=== PATIENT | male | born 1975 | race Caucasian/White ===

== ENCOUNTER 2020-07-26 10:43 | Inpatient (IN) | payer MEDICAID, SELFPAY ==
[~2020-07-26] VITALS: Ht 167.6 cm; Wt 85.7 kg
[~2020-07-26 10:43] MED LIST: GLU500 PO
[2020-07-26 10:50] VITALS: BP_SYST 122
[2020-07-26] MEDS ORDERED: NACL 0.9% 1,000 ML IV ONE ×2 (11:45→14:30)
[2020-07-26 12:55] LABS: BASOPHILS % (AUTO) 0.1 % (0.0-2.0); HEMATOCRIT 30.2 % (36-54); HEMOGLOBIN 10.2 g/dL (14.0-18.0); LYMPHOCYTES # (AUTO) 0.6 K/uL (1.0-5.5); LYMPHOCYTES % (AUTO) 5.8 % (20.5-51.5); MEAN CORPUSCULAR HEMOGLOBIN 29 pg (27-31); MEAN CORPUSCULAR HGB CONC 34 % (32-36); MEAN CORPUSCULAR VOLUME 85 fL (79.0-98.0); MONOCYTES # (AUTO) 0.4 K/uL (0.0-1.0); MONOCYTES % (AUTO) 3.6 % (1.7-9.3); NEUTROPHILS # (AUTO) 8.9 K/uL (1.8-7.7); NEUTROPHILS % (AUTO) 90.5 % (40.0-70.0); PLATELET COUNT (AUTO) 223 K/uL (130-430); RED BLOOD CELL COUNT(AUTO) 3.58 MIL/uL (4.2-6.2); RED CELL DISTRIBUTION WIDTH 13.7 % (9.0-15.0); WHITE BLOOD COUNT (AUTO) 9.9 K/uL (4.8-10.8)
[2020-07-26 13:09] LABS: CALCIUM 8.1 mg/dL (8.4-11.0); CREATININE 2.84 mg/dL (0.55-1.30); POTASSIUM 4.4 mmol/L (3.5-5.1)
[2020-07-26 13:23] LABS: ALBUMIN 3.2 g/dL (3.4-4.8); TOTAL BILIRUBIN 0.4 mg/dL (0.0-1.0)
[2020-07-26] MEDS ORDERED: KCL 20 mEq in NS 1000 mL 1,000 ML IV ONE (17:00)
[2020-07-26] MEDS ORDERED: LOP600 PO (17:20)
[2020-07-26] MEDS ORDERED: METF500S7 PO (17:20)
[2020-07-26] MEDS ORDERED: LISI10TA5 PO (17:20)
[2020-07-26] MEDS ORDERED: GLIP5TAB13 PO (17:20)
[2020-07-26] MEDS ORDERED: KCL 20 mEq in 0.45% NS 1000 mL 1,000 ML IV ONE (17:27)
[2020-07-26] MEDS ORDERED: KCL 20 mEq in NS 1000 mL 1,000 ML IV SCH (18:30)
[2020-07-26] MEDS: LACTOBACILLUS RHAMNOSUS GG 1 CAP CAPSULE PO SCH (21:00)
[2020-07-26] MEDS: VANCOMYCIN HCL ORAL SOLUTION 250 MG/5 ML, 80 ML PO SCH (21:00)
[2020-07-26] MEDS ORDERED: SACCHAROMYCES BOULARDII 250 MG CAPSULE (FLORASTOR) PO SCH (21:00)
[2020-07-26] MEDS: ENOXAPARIN SODIUM 30 MG/0.3 ML SYRINGE SUBCUT SCH (21:27)
[2020-07-26] MEDS ORDERED: ONDANSETRON HCL 4 MG/2 ML VIAL IVP PRN (21:45)
[2020-07-26] MEDS: 0.45% NACL 1,000 ML IV SCH (22:03)
[2020-07-26] MEDS: metroNIDAZOLE 500 mg/NS 100 ML IV SCH (22:03)
[2020-07-26] MEDS: ASCORBIC ACID 500 MG TABLET PO SCH (23:00)
[2020-07-26] MEDS: ACETAMINOPHEN 325 MG TABLET PO PRN (23:00)
[2020-07-27] MEDS: metroNIDAZOLE 500 mg/NS 100 ML IV SCH (05:50)
[2020-07-27 05:58] LABS: BASOPHILS % (AUTO) 0.3 % (0.0-2.0); EOSINOPHILS % (AUTO) 0.1 % (0.0-4.0); HEMATOCRIT 26.1 % (36-54); HEMOGLOBIN 8.8 g/dL (14.0-18.0); LYMPHOCYTES # (AUTO) 1.5 K/uL (1.0-5.5); LYMPHOCYTES % (AUTO) 17.5 % (20.5-51.5); MEAN CORPUSCULAR HEMOGLOBIN 29 pg (27-31); MEAN CORPUSCULAR HGB CONC 34 % (32-36); MEAN CORPUSCULAR VOLUME 85 fL (79.0-98.0); MONOCYTES # (AUTO) 0.4 K/uL (0.0-1.0); NEUTROPHILS # (AUTO) 6.6 K/uL (1.8-7.7); NEUTROPHILS % (AUTO) 77.1 % (40.0-70.0); PLATELET COUNT (AUTO) 205 K/uL (130-430); RED BLOOD CELL COUNT(AUTO) 3.07 MIL/uL (4.2-6.2); RED CELL DISTRIBUTION WIDTH 13.4 % (9.0-15.0); WHITE BLOOD COUNT (AUTO) 8.5 K/uL (4.8-10.8)
[2020-07-27 05:59] LABS: CALCIUM 7.3 mg/dL (8.4-11.0); CREATININE 2.12 mg/dL (0.55-1.30); PHOSPHORUS 2.9 mg/dL (2.7-4.5)
[2020-07-27 07:18] LABS: C-REACTIVE PROTEIN QUANT 22.3 mg/dL (0-0.5)
[2020-07-27] MEDS: LACTOBACILLUS RHAMNOSUS GG 1 CAP CAPSULE PO SCH ×2 (12:02→21:00)
[2020-07-27] MEDS: CHOLECALCIFEROL (VITAMIN D3) 2,000 UNIT TABLET PO SCH (12:05)
[2020-07-27] MEDS: VANCOMYCIN HCL ORAL SOLUTION 250 MG/5 ML, 80 ML PO SCH ×4 (12:05→20:51)
[2020-07-27] MEDS: ASCORBIC ACID 500 MG TABLET PO SCH ×2 (12:05→20:50)
[2020-07-27] MEDS: INSULIN REGULAR, HUMAN 100 UNITS/ML, 10 ML VIAL (humuLIN R) SUBCUT PRN ×3 (12:10→21:33)
[2020-07-27] MEDS: 0.45% NACL 1,000 ML IV SCH (12:40)
[2020-07-27] MEDS ORDERED: IVERMECTIN 3 MG TABLET PO ONE (14:00)
[2020-07-27 14:17] VITALS: BP_SYST 141
[2020-07-27] MEDS: AZITHROMYCIN 500 MG in NS 250 ML IV SCH (15:33)
[2020-07-27 16:16] VITALS: BP_SYST 123
[2020-07-27 20:21] VITALS: BP_SYST 149
[2020-07-27] MEDS: ACETAMINOPHEN 325 MG TABLET PO PRN (20:51)
[2020-07-27] MEDS: ENOXAPARIN SODIUM 30 MG/0.3 ML SYRINGE SUBCUT SCH (20:52)
[2020-07-28 00:17] VITALS: BP_SYST 133
[2020-07-28] MEDS: 0.45% NACL 1,000 ML IV SCH ×2 (06:12→22:00)
[2020-07-28] MEDS: CHOLECALCIFEROL (VITAMIN D3) 2,000 UNIT TABLET PO SCH (08:54)
[2020-07-28] MEDS: VANCOMYCIN HCL ORAL SOLUTION 250 MG/5 ML, 80 ML PO SCH ×4 (08:54→21:59)
[2020-07-28] MEDS: ASCORBIC ACID 500 MG TABLET PO SCH ×2 (08:54→21:59)
[2020-07-28] MEDS: LACTOBACILLUS RHAMNOSUS GG 1 CAP CAPSULE PO SCH ×2 (08:54→21:59)
[2020-07-28 09:11] LABS: BASOPHILS % (AUTO) 0.4 % (0.0-2.0); EOSINOPHILS % (AUTO) 0.3 % (0.0-4.0); HEMATOCRIT 26.1 % (36-54); HEMOGLOBIN 9.1 g/dL (14.0-18.0); LYMPHOCYTES # (AUTO) 0.9 K/uL (1.0-5.5); LYMPHOCYTES % (AUTO) 9.9 % (20.5-51.5); MEAN CORPUSCULAR HEMOGLOBIN 29 pg (27-31); MEAN CORPUSCULAR HGB CONC 35 % (32-36); MONOCYTES # (AUTO) 0.6 K/uL (0.0-1.0); MONOCYTES % (AUTO) 6.5 % (1.7-9.3); NEUTROPHILS # (AUTO) 7.2 K/uL (1.8-7.7); NEUTROPHILS % (AUTO) 82.9 % (40.0-70.0); PLATELET COUNT (AUTO) 241 K/uL (130-430); RED BLOOD CELL COUNT(AUTO) 3.13 MIL/uL (4.2-6.2); RED CELL DISTRIBUTION WIDTH 13.5 % (9.0-15.0); WHITE BLOOD COUNT (AUTO) 8.6 K/uL (4.8-10.8)
[2020-07-28 09:22] LABS: MEAN CORPUSCULAR VOLUME 83 fL (79.0-98.0)
[2020-07-28 09:38] VITALS: BP_SYST 136
[2020-07-28 10:22] LABS: CALCIUM 8.1 mg/dL (8.4-11.0); CREATININE 1.86 mg/dL (0.55-1.30); POTASSIUM 3.8 mmol/L (3.5-5.1)
[2020-07-28] MEDS: INSULIN REGULAR, HUMAN 100 UNITS/ML, 10 ML VIAL (humuLIN R) SUBCUT PRN (12:14)
[2020-07-28] MEDS: AZITHROMYCIN 500 MG in NS 250 ML IV SCH (16:00)
[2020-07-28 18:25] VITALS: BP_SYST 128
[2020-07-28 20:00] VITALS: BP_SYST 127
[2020-07-28] MEDS: IVERMECTIN 3 MG TABLET PO ONE ×2 (20:00→21:58)
[2020-07-28] MEDS: ENOXAPARIN SODIUM 30 MG/0.3 ML SYRINGE SUBCUT SCH (21:00)
[2020-07-29 08:04] LABS: BASOPHILS % (AUTO) 0.2 % (0.0-2.0); EOSINOPHILS # (AUTO) 0.1 K/uL (0.0-0.4); EOSINOPHILS % (AUTO) 0.6 % (0.0-4.0); HEMATOCRIT 25.6 % (36-54); HEMOGLOBIN 8.8 g/dL (14.0-18.0); LYMPHOCYTES # (AUTO) 0.9 K/uL (1.0-5.5); LYMPHOCYTES % (AUTO) 10.6 % (20.5-51.5); MEAN CORPUSCULAR HEMOGLOBIN 29 pg (27-31); MEAN CORPUSCULAR HGB CONC 34 % (32-36); MEAN CORPUSCULAR VOLUME 84 fL (79.0-98.0); MONOCYTES # (AUTO) 0.9 K/uL (0.0-1.0); MONOCYTES % (AUTO) 9.6 % (1.7-9.3); PLATELET COUNT (AUTO) 258 K/uL (130-430); RED BLOOD CELL COUNT(AUTO) 3.06 MIL/uL (4.2-6.2); RED CELL DISTRIBUTION WIDTH 13.7 % (9.0-15.0); WHITE BLOOD COUNT (AUTO) 8.9 K/uL (4.8-10.8)
[2020-07-29 08:12] LABS: ALBUMIN 2.3 g/dL (3.4-4.8); CALCIUM 8.1 mg/dL (8.4-11.0); CREATININE 1.7 mg/dL (0.55-1.30); POTASSIUM 3.5 mmol/L (3.5-5.1); TOTAL BILIRUBIN 0.4 mg/dL (0.0-1.0)
[2020-07-29 08:45] VITALS: BP_SYST 141
[2020-07-29] MEDS: LACTOBACILLUS RHAMNOSUS GG 1 CAP CAPSULE PO SCH ×2 (09:00→21:00)
[2020-07-29 09:03] LABS: C-REACTIVE PROTEIN QUANT 37.2 mg/dL (0-0.5)
[2020-07-29] MEDS: CHOLECALCIFEROL (VITAMIN D3) 2,000 UNIT TABLET PO SCH (09:57)
[2020-07-29] MEDS: ASCORBIC ACID 500 MG TABLET PO SCH ×2 (09:57→21:00)
[2020-07-29] MEDS ORDERED: ENOXAPARIN SODIUM 30 MG/0.3 ML SYRINGE ONE (10:01)
[2020-07-29] MEDS: VANCOMYCIN HCL ORAL SOLUTION 250 MG/5 ML, 80 ML PO SCH ×4 (10:04→21:00)
[2020-07-29] MEDS: ENOXAPARIN SODIUM 30 MG/0.3 ML SYRINGE SUBCUT SCH ×2 (10:05→21:00)
[2020-07-29 11:16] VITALS: BP_SYST 144
[2020-07-29] MEDS: 0.45% NACL 1,000 ML IV SCH (12:13)
[2020-07-29 15:36] VITALS: BP_SYST 152
[2020-07-29] MEDS: AZITHROMYCIN 500 MG in NS 250 ML IV SCH (17:04)
[2020-07-29 20:00] VITALS: BP_SYST 130
[2020-07-29] MEDS ORDERED: MELATONIN 3 MG TABLET PO PRN (21:30)
[2020-07-30 04:00] VITALS: BP_SYST 135
[2020-07-30] MEDS: 0.45% NACL 1,000 ML IV SCH (06:52)
[2020-07-30 08:00] VITALS: BP_SYST 160
[2020-07-30 08:15] LABS: BASOPHILS % (AUTO) 0.4 % (0.0-2.0); EOSINOPHILS # (AUTO) 0.1 K/uL (0.0-0.4); EOSINOPHILS % (AUTO) 1.1 % (0.0-4.0); HEMATOCRIT 26.3 % (36-54); LYMPHOCYTES # (AUTO) 1.1 K/uL (1.0-5.5); LYMPHOCYTES % (AUTO) 17.2 % (20.5-51.5); MEAN CORPUSCULAR HEMOGLOBIN 29 pg (27-31); MEAN CORPUSCULAR HGB CONC 34 % (32-36); MEAN CORPUSCULAR VOLUME 84 fL (79.0-98.0); MONOCYTES # (AUTO) 0.9 K/uL (0.0-1.0); MONOCYTES % (AUTO) 13.9 % (1.7-9.3); NEUTROPHILS # (AUTO) 4.4 K/uL (1.8-7.7); NEUTROPHILS % (AUTO) 67.4 % (40.0-70.0); PLATELET COUNT (AUTO) 310 K/uL (130-430); RED BLOOD CELL COUNT(AUTO) 3.15 MIL/uL (4.2-6.2); RED CELL DISTRIBUTION WIDTH 13.5 % (9.0-15.0); WHITE BLOOD COUNT (AUTO) 6.6 K/uL (4.8-10.8)
[2020-07-30 08:43] LABS: ALBUMIN 2.2 g/dL (3.4-4.8); CALCIUM 7.9 mg/dL (8.4-11.0); CREATININE 1.45 mg/dL (0.55-1.30); POTASSIUM 3.5 mmol/L (3.5-5.1); TOTAL BILIRUBIN 0.4 mg/dL (0.0-1.0)
[2020-07-30] MEDS: LACTOBACILLUS RHAMNOSUS GG 1 CAP CAPSULE PO SCH ×2 (09:00→21:00)
[2020-07-30] MEDS ORDERED: ENOXAPARIN SODIUM 30 MG/0.3 ML SYRINGE ONE ×2 (09:55→21:42)
[2020-07-30] MEDS: ASCORBIC ACID 500 MG TABLET PO SCH ×2 (09:55→21:00)
[2020-07-30] MEDS: CHOLECALCIFEROL (VITAMIN D3) 2,000 UNIT TABLET PO SCH (09:55)
[2020-07-30] MEDS: VANCOMYCIN HCL ORAL SOLUTION 250 MG/5 ML, 80 ML PO SCH ×4 (09:55→21:00)
[2020-07-30] MEDS: ENOXAPARIN SODIUM 30 MG/0.3 ML SYRINGE SUBCUT SCH ×2 (09:57→21:00)
[2020-07-30] MEDS: AZITHROMYCIN 500 MG in D5W 250 ML IV SCH (11:41)
[2020-07-30 12:05] VITALS: BP_SYST 160
[2020-07-30 16:07] VITALS: BP_SYST 149
[2020-07-30 20:00] VITALS: BP_SYST 150
[2020-07-31] MEDS: 0.45% NACL 1,000 ML IV SCH
[2020-07-31 08:00] VITALS: BP_SYST 149
[2020-07-31 08:30] LABS: BASOPHILS % (AUTO) 0.6 % (0.0-2.0); EOSINOPHILS # (AUTO) 0.1 K/uL (0.0-0.4); EOSINOPHILS % (AUTO) 1.2 % (0.0-4.0); HEMATOCRIT 26.9 % (36-54); HEMOGLOBIN 9.3 g/dL (14.0-18.0); LYMPHOCYTES # (AUTO) 1.1 K/uL (1.0-5.5); LYMPHOCYTES % (AUTO) 19.7 % (20.5-51.5); MEAN CORPUSCULAR HEMOGLOBIN 29 pg (27-31); MEAN CORPUSCULAR HGB CONC 35 % (32-36); MEAN CORPUSCULAR VOLUME 84 fL (79.0-98.0); MONOCYTES # (AUTO) 0.7 K/uL (0.0-1.0); MONOCYTES % (AUTO) 11.7 % (1.7-9.3); NEUTROPHILS # (AUTO) 3.8 K/uL (1.8-7.7); NEUTROPHILS % (AUTO) 66.8 % (40.0-70.0); PLATELET COUNT (AUTO) 335 K/uL (130-430); RED BLOOD CELL COUNT(AUTO) 3.21 MIL/uL (4.2-6.2); RED CELL DISTRIBUTION WIDTH 13.3 % (9.0-15.0); WHITE BLOOD COUNT (AUTO) 5.7 K/uL (4.8-10.8)
[2020-07-31 08:38] LABS: ALBUMIN 2.2 g/dL (3.4-4.8); CALCIUM 8.1 mg/dL (8.4-11.0); CREATININE 1.42 mg/dL (0.55-1.30); POTASSIUM 3.4 mmol/L (3.5-5.1); TOTAL BILIRUBIN 0.3 mg/dL (0.0-1.0)
[2020-07-31] MEDS: VANCOMYCIN HCL ORAL SOLUTION 250 MG/5 ML, 80 ML PO SCH ×2 (09:00→13:05)
[2020-07-31] MEDS: CHOLECALCIFEROL (VITAMIN D3) 2,000 UNIT TABLET PO SCH (09:00)
[2020-07-31] MEDS: LACTOBACILLUS RHAMNOSUS GG 1 CAP CAPSULE PO SCH (09:00)
[2020-07-31] MEDS: AZITHROMYCIN 500 MG in D5W 250 ML IV SCH (10:47)
[2020-07-31 11:10] VITALS: BP_SYST 149
[2020-07-31] MEDS: ENOXAPARIN SODIUM 30 MG/0.3 ML SYRINGE SUBCUT SCH (12:30)
[2020-07-31] MEDS ORDERED: ENOXAPARIN SODIUM 60 MG/0.6 ML SYRINGE ONE (13:01)
[2020-07-31] MEDS: ASCORBIC ACID 500 MG TABLET PO SCH (13:05)
[2020-07-31] MEDS: INSULIN REGULAR, HUMAN 100 UNITS/ML, 10 ML VIAL (humuLIN R) SUBCUT PRN (13:41)
[2020-07-31 16:39] VITALS: BP_SYST 149
== END 2020-07-31 18:20 | disposition home or self-care (01) | DRG 137 ==
LOC: SED 10:43 → SMU 16:48
PROVIDERS: ADMIT Family Medicine; ATTEND Family Medicine
PROC: XW13325 Transfusion of Convalescent Plasma (Nonautologous) into Peripheral Vein, Percutaneous Approach, New Technology Group 5 (ICD-10-PCS; principal; 2020-07-28)
DX: U07.1 COVID-19 (principal); I12.9 Hypertensive chronic kidney disease with stage 1 through stage 4 chronic kidney disease, or unspecified chronic kidney disease; N18.9 Chronic kidney disease, unspecified; E11.22 Type 2 diabetes mellitus with diabetic chronic kidney disease; K52.9 Noninfective gastroenteritis and colitis, unspecified; D64.9 Anemia, unspecified; E87.1 Hypo-osmolality and hyponatremia; Z79.899 Other long term (current) drug therapy; Z90.49 Acquired absence of other specified parts of digestive tract; N17.0 Acute kidney failure with tubular necrosis; E44.0 Moderate protein-calorie malnutrition; R64 Cachexia
CPT/HCPCS: 36415; 71045; 80048; 80053; 82728; 82962; 83605; 83690-TC; 83735-TC; 84100-TC; 85025; 85379; 86140; 86886; 86900; 86901; 87040-TC; 87230-TC; 96360; 99291; J0456; J1650; J1815; J2405; J3370; J3480; J3490; J7050; J7060; P9017

== ENCOUNTER 2023-05-01 17:07 | Inpatient (IN) | payer OTHER, MEDICAID ==
[~2023-05-01] VITALS: Ht 165.1 cm; Wt 86.2 kg
[2023-05-01 17:07] VITALS: BP_SYST 137; PULSE 100; RESP 19; TEMP 98.8; O2SAT 100
[~2023-05-01 17:07] MED LIST changes: +GLIP5TAB13 PO; +LOP600 PO
[2023-05-01] MEDS ORDERED: TAMS0.4C96 PO (18:55)
[2023-05-01] MEDS ORDERED: LISI-209 PO (18:55)
[2023-05-01] MEDS ORDERED: ATOR20TA64 PO (18:55)
[2023-05-01] MEDS ORDERED: GLIP10TA11 PO (18:55)
[2023-05-01] MEDS ORDERED: cefTRIAXone 1 GM IVPB PREMIX 50 ML IV ONE (19:00)
[2023-05-01] MEDS ORDERED: NS 1000 ML IV.SOLN IV ONE (19:00)
[2023-05-01 19:44] LABS: BASOPHILS # (AUTO) 0.1 K/uL (0.0-0.2); BASOPHILS % (AUTO) 0.5 % (0.0-2.0); EOSINOPHILS # (AUTO) 0.3 K/uL (0.0-0.4); EOSINOPHILS % (AUTO) 2.1 % (0.0-4.0); HEMATOCRIT 28.6 % (36-54); HEMOGLOBIN 9.2 g/dL (14.0-18.0); LYMPHOCYTES % (AUTO) 16.7 % (20.5-51.5); MEAN CORPUSCULAR HEMOGLOBIN 27 pg (27-31); MEAN CORPUSCULAR HGB CONC 32 % (32-36); MEAN CORPUSCULAR VOLUME 83 fL (79.0-98.0); MONOCYTES # (AUTO) 0.8 K/uL (0.0-1.0); NEUTROPHILS # (AUTO) 8.9 K/uL (1.8-7.7); NEUTROPHILS % (AUTO) 73.7 % (40.0-70.0); PLATELET COUNT (AUTO) 287 K/uL (130-430); RED BLOOD CELL COUNT(AUTO) 3.43 MIL/uL (4.2-6.2); RED CELL DISTRIBUTION WIDTH 14.3 % (9.0-15.0); WHITE BLOOD COUNT (AUTO) 12.1 K/uL (4.8-10.8)
[2023-05-01] MEDS ORDERED: MORPHINE 4 MG INJ. 4 MG/ML VIAL IVP ONE (19:45)
[2023-05-01 20:01] LABS: ANION GAP 10 (5-15); CALCIUM 7.6 mg/dL (8.4-11.0); CARBON DIOXIDE 20 mmol/L (23-29); CHLORIDE 104 mmol/L (98-107); CREATININE 2.35 mg/dL (0.55-1.30); GFR AFRICAN AMERICAN 39 mL/min (>90); GLUCOSE 94 mg/dL (74-106); POTASSIUM 4.8 mmol/L (3.5-5.1); SODIUM SERUM 134 mmol/L (136-145); UREA NITROGEN, BLOOD 54 mg/dL (8-21)
[2023-05-01 20:09] LABS: GFR NON AFRICAN-AMERICAN 32 mL/min (>90)
[2023-05-01 20:11] LABS: ALANINE AMINOTRANSFERASE 28 U/L (12-78); ALBUMIN 2.8 g/dL (3.4-4.8); ASPARTATE AMINOTRANSFERASE 14 U/L (10-37); TOTAL BILIRUBIN 0.3 mg/dL (0.0-1.0); TOTAL PROTEIN, SERUM 8.3 g/dL (6.4-8.3)
[2023-05-01] MEDS ORDERED: POTASSIUM CHLORIDE 20 MEQ TAB.PRT.SR PO PRN (21:00)
[2023-05-01] MEDS ORDERED: DOCUSATE SODIUM 100 MG CAPSULE PO PRN (21:00)
[2023-05-01] MEDS ORDERED: MUPIROCIN 2% TOPICAL OINTMENT 22 GM NS PRN (21:00)
[2023-05-01] MEDS ORDERED: DEXTROSE 50% JECT 50 ML DISP.SYRIN IVP PRN (21:00)
[2023-05-01] MEDS ORDERED: MAGNESIUM SULFATE 50 ML IV PRN (21:00)
[2023-05-01] MEDS ORDERED: LORazepam 2 MG/ML VIAL IVP PRN (21:00)
[2023-05-01] MEDS ORDERED: MORPHINE 2 MG/ML INJ. SYRINGE IVP PRN (21:00)
[2023-05-01] MEDS ORDERED: ZOLPIDEM TARTRATE 5 MG TABLET PO PRN (21:00)
[2023-05-01] MEDS ORDERED: ACETAMINOPHEN 325 MG TABLET PO PRN ×2 (21:00)
[2023-05-01] MEDS ORDERED: CHOL200075 PO (21:08)
[2023-05-01] MEDS ORDERED: SEMA0.258 SUBCUT (21:08)
[2023-05-01] MEDS ORDERED: DORZ10DR10 EACH EYE (21:08)
[2023-05-01] MEDS ORDERED: FERR324T11 (21:08)
[2023-05-01 21:34] LABS: TOTAL IRON BIND. CAPACITY 200 ug/dL (250-450)
[2023-05-01 22:03] VITALS: BP_SYST 152; PULSE 96; RESP 18; TEMP 98.2; O2SAT 100
[2023-05-01] MEDS: HEPARIN SODIUM,PORCINE 5,000 UNITS/ML VIAL SUBCUT SCH (23:01)
[2023-05-01] MEDS: NACL 0.9% 1,000 ML IV SCH (23:02)
[2023-05-02] MEDS: MORPHINE 2 MG/ML INJ. SYRINGE IVP PRN ×3 (00:44→20:00)
[2023-05-02 06:54] LABS: CALCIUM 7.2 mg/dL (8.4-11.0); CREATININE 2.02 mg/dL (0.55-1.30); POTASSIUM 4.9 mmol/L (3.5-5.1)
[2023-05-02 07:11] LABS: BASOPHILS % (AUTO) 0.5 % (0.0-2.0); EOSINOPHILS # (AUTO) 0.3 K/uL (0.0-0.4); EOSINOPHILS % (AUTO) 2.4 % (0.0-4.0); HEMATOCRIT 26.9 % (36-54); HEMOGLOBIN 8.6 g/dL (14.0-18.0); LYMPHOCYTES # (AUTO) 1.8 K/uL (1.0-5.5); LYMPHOCYTES % (AUTO) 17.7 % (20.5-51.5); MEAN CORPUSCULAR HEMOGLOBIN 27 pg (27-31); MEAN CORPUSCULAR HGB CONC 32 % (32-36); MEAN CORPUSCULAR VOLUME 84 fL (79.0-98.0); MONOCYTES # (AUTO) 0.6 K/uL (0.0-1.0); MONOCYTES % (AUTO) 6.2 % (1.7-9.3); NEUTROPHILS # (AUTO) 7.6 K/uL (1.8-7.7); NEUTROPHILS % (AUTO) 73.2 % (40.0-70.0); PLATELET COUNT (AUTO) 274 K/uL (130-430); RED CELL DISTRIBUTION WIDTH 14.5 % (9.0-15.0); WHITE BLOOD COUNT (AUTO) 10.4 K/uL (4.8-10.8)
[2023-05-02 07:56] VITALS: BP_SYST 138; PULSE 97; RESP 20; TEMP 98.4; O2SAT 98
[2023-05-02 08:00] VITALS: O2SAT 98
[2023-05-02] MEDS: ATORVASTATIN 20 MG TABLET PO SCH (08:49)
[2023-05-02] MEDS: GEMFIBROZIL 600 MG TABLET (LOPID) PO SCH ×2 (08:49→21:10)
[2023-05-02] MEDS: TAMSULOSIN HCL 0.4 MG CAP PO SCH (08:49)
[2023-05-02] MEDS: LISINOPRIL 10 MG TABLET (PRINIVIL) PO SCH (08:50)
[2023-05-02] MEDS: HEPARIN SODIUM,PORCINE 5,000 UNITS/ML VIAL SUBCUT SCH ×2 (08:54→21:19)
[2023-05-02] MEDS: NACL 0.9% 1,000 ML IV SCH (11:03)
[2023-05-02] MEDS: ONDANSETRON HCL 4 MG/2 ML VIAL IVP PRN (11:36)
[2023-05-02 12:00] VITALS: BP_SYST 148; PULSE 96; RESP 16; TEMP 98.4; O2SAT 96
[2023-05-02 16:00] VITALS: BP_SYST 144; PULSE 96; RESP 16; TEMP 98.6; O2SAT 97
[2023-05-02] MEDS: cefTRIAXone 1 GM IVPB PREMIX 50 ML IV SCH (17:49)
[2023-05-02 19:40] VITALS: BP_SYST 156; PULSE 97; RESP 18; TEMP 100; O2SAT 100
[2023-05-02] MEDS: FERROUS SULFATE 325 MG TABLET.DR PO SCH (21:10)
[2023-05-02] MEDS: INSULIN LISPRO SLIDING SCALE 100 UNITS/ML, 3 ML VIAL (humaLOG) SUBCUT PRN (21:18)
[2023-05-03 00:38] VITALS: BP_SYST 157; PULSE 100; RESP 18; TEMP 98.6; O2SAT 98
[2023-05-03 00:47] VITALS: O2SAT 100
[2023-05-03 05:02] LABS: BASOPHILS % (AUTO) 0.3 % (0.0-2.0); EOSINOPHILS # (AUTO) 0.3 K/uL (0.0-0.4); EOSINOPHILS % (AUTO) 2.6 % (0.0-4.0); HEMATOCRIT 25.4 % (36-54); HEMOGLOBIN 8.2 g/dL (14.0-18.0); LYMPHOCYTES % (AUTO) 19.1 % (20.5-51.5); MEAN CORPUSCULAR HEMOGLOBIN 27 pg (27-31); MEAN CORPUSCULAR HGB CONC 32 % (32-36); MEAN CORPUSCULAR VOLUME 83 fL (79.0-98.0); MONOCYTES # (AUTO) 0.8 K/uL (0.0-1.0); MONOCYTES % (AUTO) 7.5 % (1.7-9.3); NEUTROPHILS # (AUTO) 7.2 K/uL (1.8-7.7); NEUTROPHILS % (AUTO) 70.5 % (40.0-70.0); PLATELET COUNT (AUTO) 270 K/uL (130-430); RED BLOOD CELL COUNT(AUTO) 3.05 MIL/uL (4.2-6.2); RED CELL DISTRIBUTION WIDTH 14.5 % (9.0-15.0); WHITE BLOOD COUNT (AUTO) 10.2 K/uL (4.8-10.8)
[2023-05-03 05:15] LABS: CREATININE 1.9 mg/dL (0.55-1.30); POTASSIUM 4.8 mmol/L (3.5-5.1)
[2023-05-03] MEDS: NACL 0.9% 1,000 ML IV SCH ×3 (05:38→23:30)
[2023-05-03 06:27] LABS: BILIRUBIN,URINE NEGATIVE (NEGATIVE); CLARITY/URINE CLEAR (CLEAR); COLOR,URINE YELLOW (YELLOW); GLUCOSE,URINE NEGATIVE (NEGATIVE); KETONES,URINE NEGATIVE (NEGATIVE); LEUKOCYTE ESTERASE ,URINE NEGATIVE (NEGATIVE); NITRITE, URINE NEGATIVE (NEGATIVE); PH,URINE 5.5 (5.0-8.0); PROTEIN URINE 2+ (NEGATIVE); UROBILINOGEN,URINE 0.2 (0.2-1.0)
[2023-05-03 06:35] LABS: BLOOD, URINE TRACE (NEGATIVE)
[2023-05-03 06:50] LABS: BACTERIA,URINE None Seen /HPF (None Seen)
[2023-05-03 08:00] VITALS: BP_SYST 144; PULSE 97; RESP 17; TEMP 98.4; O2SAT 93; O2SAT 97
[2023-05-03] MEDS: FERROUS SULFATE 325 MG TABLET.DR PO SCH ×2 (08:50→23:17)
[2023-05-03] MEDS: TAMSULOSIN HCL 0.4 MG CAP PO SCH (08:50)
[2023-05-03] MEDS: ATORVASTATIN 20 MG TABLET PO SCH (08:50)
[2023-05-03] MEDS: GEMFIBROZIL 600 MG TABLET (LOPID) PO SCH ×2 (08:50→23:16)
[2023-05-03] MEDS: MORPHINE 2 MG/ML INJ. SYRINGE IVP PRN ×3 (08:50→22:28)
[2023-05-03] MEDS: LISINOPRIL 10 MG TABLET (PRINIVIL) PO SCH (08:51)
[2023-05-03] MEDS: HEPARIN SODIUM,PORCINE 5,000 UNITS/ML VIAL SUBCUT SCH ×2 (09:00→23:27)
[2023-05-03] MEDS: INSULIN LISPRO SLIDING SCALE 100 UNITS/ML, 3 ML VIAL (humaLOG) SUBCUT PRN ×3 (11:49→23:19)
[2023-05-03 12:00] VITALS: BP_SYST 156; PULSE 93; RESP 18; TEMP 97.8; O2SAT 98
[2023-05-03 16:12] VITALS: BP_SYST 142; PULSE 92; RESP 16; TEMP 97.9; O2SAT 97
[2023-05-03] MEDS: cefTRIAXone 1 GM IVPB PREMIX 50 ML IV SCH (17:13)
[2023-05-03 20:00] VITALS: BP_SYST 155; PULSE 88; RESP 18; TEMP 97.9; O2SAT 97
[2023-05-04 06:43] LABS: BASOPHILS % (AUTO) 0.5 % (0.0-2.0); EOSINOPHILS # (AUTO) 0.3 K/uL (0.0-0.4); EOSINOPHILS % (AUTO) 3.2 % (0.0-4.0); HEMATOCRIT 26.5 % (36-54); HEMOGLOBIN 8.6 g/dL (14.0-18.0); LYMPHOCYTES # (AUTO) 1.7 K/uL (1.0-5.5); MEAN CORPUSCULAR HEMOGLOBIN 27 pg (27-31); MEAN CORPUSCULAR HGB CONC 33 % (32-36); MEAN CORPUSCULAR VOLUME 84 fL (79.0-98.0); MONOCYTES # (AUTO) 0.6 K/uL (0.0-1.0); MONOCYTES % (AUTO) 6.7 % (1.7-9.3); NEUTROPHILS # (AUTO) 5.9 K/uL (1.8-7.7); NEUTROPHILS % (AUTO) 69.6 % (40.0-70.0); PLATELET COUNT (AUTO) 286 K/uL (130-430); RED BLOOD CELL COUNT(AUTO) 3.18 MIL/uL (4.2-6.2); RED CELL DISTRIBUTION WIDTH 14.4 % (9.0-15.0); WHITE BLOOD COUNT (AUTO) 8.5 K/uL (4.8-10.8)
[2023-05-04 07:04] LABS: CALCIUM 7.4 mg/dL (8.4-11.0); CREATININE 1.83 mg/dL (0.55-1.30); POTASSIUM 4.8 mmol/L (3.5-5.1)
[2023-05-04 08:00] VITALS: BP_SYST 133; PULSE 91; RESP 17; TEMP 97.1; O2SAT 98
[2023-05-04] MEDS: FERROUS SULFATE 325 MG TABLET.DR PO SCH ×2 (08:34→20:58)
[2023-05-04] MEDS: ATORVASTATIN 20 MG TABLET PO SCH (08:34)
[2023-05-04] MEDS: TAMSULOSIN HCL 0.4 MG CAP PO SCH (08:34)
[2023-05-04] MEDS: LISINOPRIL 10 MG TABLET (PRINIVIL) PO SCH (08:35)
[2023-05-04] MEDS: GEMFIBROZIL 600 MG TABLET (LOPID) PO SCH ×2 (08:36→20:57)
[2023-05-04] MEDS: MORPHINE 2 MG/ML INJ. SYRINGE IVP PRN ×2 (08:36→21:13)
[2023-05-04] MEDS: HEPARIN SODIUM,PORCINE 5,000 UNITS/ML VIAL SUBCUT SCH ×2 (08:42→21:05)
[2023-05-04 09:06] LABS: FOLATE (FOLIC ACID) 9.2 ng/mL (>3.0)
[2023-05-04 12:00] VITALS: BP_SYST 156; PULSE 90; RESP 16; TEMP 97.2; O2SAT 97
[2023-05-04] MEDS: ONDANSETRON HCL 4 MG/2 ML VIAL IVP PRN (12:06)
[2023-05-04] MEDS: INSULIN LISPRO SLIDING SCALE 100 UNITS/ML, 3 ML VIAL (humaLOG) SUBCUT PRN ×2 (12:11→17:52)
[2023-05-04] MEDS: NACL 0.9% 1,000 ML IV SCH (13:12)
[2023-05-04 16:38] VITALS: BP_SYST 158; PULSE 99; RESP 17; TEMP 96.8; O2SAT 99
[2023-05-04] MEDS: cefTRIAXone 1 GM IVPB PREMIX 50 ML IV SCH (17:46)
[2023-05-04 20:00] VITALS: BP_SYST 168; PULSE 102; RESP 18; TEMP 99.1; O2SAT 98
[2023-05-05] VITALS: BP_SYST 146; PULSE 92; RESP 18; TEMP 98.2; O2SAT 97
[2023-05-05] MEDS: NACL 0.9% 1,000 ML IV SCH (01:41)
[2023-05-05 05:45] LABS: BASOPHILS % (AUTO) 0.4 % (0.0-2.0); EOSINOPHILS # (AUTO) 0.3 K/uL (0.0-0.4); EOSINOPHILS % (AUTO) 2.9 % (0.0-4.0); HEMATOCRIT 26.2 % (36-54); HEMOGLOBIN 8.5 g/dL (14.0-18.0); LYMPHOCYTES # (AUTO) 1.9 K/uL (1.0-5.5); LYMPHOCYTES % (AUTO) 19.9 % (20.5-51.5); MEAN CORPUSCULAR HEMOGLOBIN 27 pg (27-31); MEAN CORPUSCULAR HGB CONC 32 % (32-36); MEAN CORPUSCULAR VOLUME 83 fL (79.0-98.0); MONOCYTES # (AUTO) 0.6 K/uL (0.0-1.0); MONOCYTES % (AUTO) 6.5 % (1.7-9.3); NEUTROPHILS # (AUTO) 6.7 K/uL (1.8-7.7); NEUTROPHILS % (AUTO) 70.3 % (40.0-70.0); PLATELET COUNT (AUTO) 296 K/uL (130-430); RED BLOOD CELL COUNT(AUTO) 3.14 MIL/uL (4.2-6.2); RED CELL DISTRIBUTION WIDTH 14.4 % (9.0-15.0); WHITE BLOOD COUNT (AUTO) 9.5 K/uL (4.8-10.8)
[2023-05-05 06:13] LABS: CALCIUM 7.3 mg/dL (8.4-11.0); CREATININE 1.93 mg/dL (0.55-1.30); POTASSIUM 4.3 mmol/L (3.5-5.1)
[2023-05-05 08:39] VITALS: BP_SYST 139; PULSE 95; RESP 17; TEMP 97.3; O2SAT 98
[2023-05-05] MEDS ORDERED: NALOXONE HCL 0.4 MG/ML AMP (NARCAN) IVP PRN (09:15)
[2023-05-05] MEDS ORDERED: levoFLOXacin 500 MG TABLET PO ONE (10:00)
[2023-05-05] MEDS ORDERED: HYDROcodone/ACETAMIN 5-325 MG TAB (NORCO/ VICODIN) PO ONE (10:00)
[2023-05-05] MEDS: ATORVASTATIN 20 MG TABLET PO SCH (10:25)
[2023-05-05] MEDS: LISINOPRIL 10 MG TABLET (PRINIVIL) PO SCH (10:25)
[2023-05-05] MEDS: TAMSULOSIN HCL 0.4 MG CAP PO SCH (10:25)
[2023-05-05] MEDS: GEMFIBROZIL 600 MG TABLET (LOPID) PO SCH (10:25)
[2023-05-05] MEDS: FERROUS SULFATE 325 MG TABLET.DR PO SCH (10:25)
[2023-05-05] MEDS: HEPARIN SODIUM,PORCINE 5,000 UNITS/ML VIAL SUBCUT SCH (10:28)
[2023-05-05] MEDS ORDERED: CLINDAMYCIN HCL 150 MG CAPSULE PO SCH (12:00)
[2023-05-05 12:30] VITALS: BP_SYST 150; PULSE 89; RESP 17; TEMP 97.5; O2SAT 99
[2023-05-05 14:25] VITALS: O2SAT 98
[2023-05-05 14:50] VITALS: BP_SYST 139; PULSE 95; RESP 18; TEMP 97.3; O2SAT 98
[2023-05-05] MEDS ORDERED: levoFLOXacin 500 MG TABLET PO SCH (21:00)
[2023-05-05] MEDS ORDERED: HYDROcodone/ACETAMIN 5-325 MG TAB (NORCO/ VICODIN) PO SCH (21:00)
== END 2023-05-05 15:35 | DRG 602 ==
LOC: SED 17:07 → SMU 20:43
PROVIDERS: ADMIT General Practice; ATTEND General Practice
DX: L03.115 Cellulitis of right lower limb (principal); N17.0 Acute kidney failure with tubular necrosis; E11.621 Type 2 diabetes mellitus with foot ulcer; L03.116 Cellulitis of left lower limb; L97.519 Non-pressure chronic ulcer of other part of right foot with unspecified severity; L97.529 Non-pressure chronic ulcer of other part of left foot with unspecified severity; E11.319 Type 2 diabetes mellitus with unspecified diabetic retinopathy without macular edema; I12.9 Hypertensive chronic kidney disease with stage 1 through stage 4 chronic kidney disease, or unspecified chronic kidney disease; E11.22 Type 2 diabetes mellitus with diabetic chronic kidney disease; N18.32 Chronic kidney disease, stage 3b; H54.61 Unqualified visual loss, right eye, normal vision left eye; E11.51 Type 2 diabetes mellitus with diabetic peripheral angiopathy without gangrene; E11.65 Type 2 diabetes mellitus with hyperglycemia; D50.9 Iron deficiency anemia, unspecified; Z86.14 Personal history of Methicillin resistant Staphylococcus aureus infection; Z89.429 Acquired absence of other toe(s), unspecified side
CPT/HCPCS: 36415; 71045; 80048; 80053; 81000; 82607; 82728; 82746; 83037; 83540; 83550; 83605; 83735; 84484; 85025; 87040; 93005; 93923; 96365; 96375; 99285; J0696; J1644; J2270; J2405

== ENCOUNTER 2023-06-03 10:30 | Inpatient (IN) | payer OTHER, MEDICAID ==
[~2023-06-03] VITALS: Ht 167.6 cm; Wt 88.0 kg
[2023-06-03 10:30] VITALS: BP_SYST 123; PULSE 104; RESP 18; TEMP 97; O2SAT 100
[~2023-06-03 10:30] MED LIST changes: +ATOR20TA64 PO; +CHOL200075 PO; +DORZ10DR10 EACH EYE; +FERR324T11; +GLIP10TA11 PO; -GLU500 PO; +LISI-209 PO; -LOP600 PO; +SEMA0.258 SUBCUT; +TAMS0.4C96 PO
[2023-06-03] MEDS ORDERED: NACL 0.9% 2,000 ML IV ONE (11:00)
[2023-06-03 11:19] LABS: BASOPHILS % (AUTO) 0.5 % (0.0-2.0); EOSINOPHILS # (AUTO) 0.6 K/uL (0.0-0.4); EOSINOPHILS % (AUTO) 6.8 % (0.0-4.0); HEMATOCRIT 30.2 % (36-54); HEMOGLOBIN 9.6 g/dL (14.0-18.0); LYMPHOCYTES % (AUTO) 23.7 % (20.5-51.5); MEAN CORPUSCULAR HEMOGLOBIN 27 pg (27-31); MEAN CORPUSCULAR HGB CONC 32 % (32-36); MEAN CORPUSCULAR VOLUME 85 fL (79.0-98.0); MONOCYTES # (AUTO) 0.6 K/uL (0.0-1.0); MONOCYTES % (AUTO) 6.8 % (1.7-9.3); NEUTROPHILS # (AUTO) 5.2 K/uL (1.8-7.7); NEUTROPHILS % (AUTO) 62.2 % (40.0-70.0); PLATELET COUNT (AUTO) 206 K/uL (130-430); RED BLOOD CELL COUNT(AUTO) 3.57 MIL/uL (4.2-6.2); RED CELL DISTRIBUTION WIDTH 15.9 % (9.0-15.0); WHITE BLOOD COUNT (AUTO) 8.4 K/uL (4.8-10.8)
[2023-06-03 11:33] LABS: ANION GAP 14 (5-15); CARBON DIOXIDE 18 mmol/L (23-29); CHLORIDE 105 mmol/L (98-107); CREATININE 2.38 mg/dL (0.55-1.30); GFR AFRICAN AMERICAN 38 mL/min (>90); GLUCOSE 107 mg/dL (74-106); POTASSIUM 5.5 mmol/L (3.5-5.1); SODIUM SERUM 137 mmol/L (136-145); UREA NITROGEN, BLOOD 69 mg/dL (8-21)
[2023-06-03 11:36] LABS: PROTHROMBIN TIME 10.1 SECS (9.5-12.5)
[2023-06-03 11:37] LABS: GFR NON AFRICAN-AMERICAN 31 mL/min (>90)
[2023-06-03 11:40] LABS: ALANINE AMINOTRANSFERASE 22 U/L (12-78); ALBUMIN 3.6 g/dL (3.4-4.8); ASPARTATE AMINOTRANSFERASE 12 U/L (10-37); TOTAL BILIRUBIN 0.3 mg/dL (0.0-1.0); TOTAL PROTEIN, SERUM 8.4 g/dL (6.4-8.3)
[2023-06-03] MEDS ORDERED: INSU100V9 SQ (11:48)
[2023-06-03] MEDS ORDERED: PIPERACILLIN/TAZOBACTAM 3.375 GM/VIAL (ZOSYN) IV ONE (12:29)
[2023-06-03] MEDS ORDERED: PIPERACILLIN/TAZO 3.375 GM in NS 50 ML IV ONE ×2 (12:30→13:15)
[2023-06-03 14:34] VITALS: BP_SYST 149; PULSE 109; RESP 18; TEMP 97.3
[2023-06-03 14:54] VITALS: BP_SYST 149; PULSE 109; RESP 16; TEMP 97.3; O2SAT 100
[2023-06-03 20:15] VITALS: O2SAT 100
[2023-06-03 20:30] VITALS: BP_SYST 138; PULSE 91; RESP 20; TEMP 97.8; O2SAT 100
[2023-06-04 00:57] VITALS: BP_SYST 141; PULSE 98; RESP 20; TEMP 98.4; O2SAT 98
[2023-06-04] MEDS ORDERED: ATORVASTATIN 20 MG TABLET PO ONE (11:00)
[2023-06-04 11:12] LABS: HEMOGLOBIN A1C 7.59 % (<5.7)
[2023-06-04 11:17] VITALS: BP_SYST 131; PULSE 67; RESP 16; TEMP 96.9; O2SAT 92
[2023-06-04] MEDS ORDERED: PIPERACILLIN/TAZO 3.375/DEX-IS 50 ML IV SCH (12:00)
[2023-06-04] MEDS ORDERED: DORZOLAMIDE HCL/TIMOLOL MAL. 10 ML EYE DROPS (COSOPT) EACH EYE ONE (12:00)
[2023-06-04] MEDS: CEFEPIME 2 GM in D5W 100 ML IV SCH (12:07)
[2023-06-04] MEDS: VANCOMYCIN HCL 1,000 MG in NS 250 ML IV SCH (13:47)
[2023-06-04 15:21] VITALS: BP_SYST 137; PULSE 88; RESP 16; TEMP 99; O2SAT 100
[2023-06-04 15:33] VITALS: O2SAT 98
[2023-06-04 20:20] VITALS: BP_SYST 127; PULSE 92; RESP 18; TEMP 97.9; O2SAT 92
[2023-06-04] MEDS: DORZOLAMIDE HCL/TIMOLOL MAL. 10 ML EYE DROPS (COSOPT) EACH EYE SCH (20:48)
[2023-06-05 00:52] VITALS: BP_SYST 130; PULSE 88; RESP 18; TEMP 97.6; O2SAT 96
[2023-06-05 06:36] LABS: BASOPHILS % (AUTO) 0.7 % (0.0-2.0); EOSINOPHILS # (AUTO) 0.4 K/uL (0.0-0.4); EOSINOPHILS % (AUTO) 5.6 % (0.0-4.0); HEMATOCRIT 30.7 % (36-54); HEMOGLOBIN 9.7 g/dL (14.0-18.0); LYMPHOCYTES # (AUTO) 1.9 K/uL (1.0-5.5); LYMPHOCYTES % (AUTO) 25.5 % (20.5-51.5); MEAN CORPUSCULAR HEMOGLOBIN 27 pg (27-31); MEAN CORPUSCULAR HGB CONC 32 % (32-36); MEAN CORPUSCULAR VOLUME 85 fL (79.0-98.0); MONOCYTES # (AUTO) 0.5 K/uL (0.0-1.0); MONOCYTES % (AUTO) 6.7 % (1.7-9.3); NEUTROPHILS # (AUTO) 4.6 K/uL (1.8-7.7); NEUTROPHILS % (AUTO) 61.5 % (40.0-70.0); PLATELET COUNT (AUTO) 200 K/uL (130-430); RED BLOOD CELL COUNT(AUTO) 3.62 MIL/uL (4.2-6.2); RED CELL DISTRIBUTION WIDTH 15.6 % (9.0-15.0); WHITE BLOOD COUNT (AUTO) 7.6 K/uL (4.8-10.8)
[2023-06-05 06:54] LABS: CALCIUM 8.7 mg/dL (8.4-11.0); CREATININE 2.04 mg/dL (0.55-1.30); POTASSIUM 5.1 mmol/L (3.5-5.1)
[2023-06-05 07:00] VITALS: O2SAT 98
[2023-06-05 09:00] VITALS: BP_SYST 119; PULSE 84; RESP 16; TEMP 98.3; O2SAT 98
[2023-06-05] MEDS: ATORVASTATIN 20 MG TABLET PO SCH (09:00)
[2023-06-05] MEDS: INSULIN GLARGINE 100 UNITS/ML, 10 ML VIAL SQ SCH (09:00)
[2023-06-05] MEDS: TAMSULOSIN HCL 0.4 MG CAP PO SCH (09:00)
[2023-06-05] MEDS: lisinopriL 5 MG TABLET PO SCH (09:00)
[2023-06-05] MEDS: DORZOLAMIDE HCL/TIMOLOL MAL. 10 ML EYE DROPS (COSOPT) EACH EYE SCH ×2 (11:02→21:30)
[2023-06-05] MEDS: CEFEPIME 2 GM in D5W 100 ML IV SCH (12:02)
[2023-06-05] MEDS: VANCOMYCIN HCL 1,000 MG in NS 250 ML IV SCH (12:03)
[2023-06-05] MEDS ORDERED: METOCLOPRAMIDE HCL 10 MG/2 ML VIAL IVP PRN (16:30)
[2023-06-05] MEDS ORDERED: ONDANSETRON HCL 4 MG/2 ML VIAL IVP PRN ×2 (16:30→22:45)
[2023-06-05] MEDS ORDERED: MORPHINE 4 MG INJ. 4 MG/ML VIAL IVP PRN (16:30)
[2023-06-05] MEDS ORDERED: MEPERIDINE HCL/PF 25 MG/ML DISP.SYRIN IVP PRN (16:30)
[2023-06-05] MEDS ORDERED: MIDAZOLAM HCL 2 MG/2 ML VIAL (VERSED) ONE (16:34)
[2023-06-05] MEDS ORDERED: fentaNYL CITRATE/PF 100 MCG/2 ML AMP ONE (16:34)
[2023-06-05] MEDS ORDERED: NS 1000 ML IV.SOLN IV ONE (17:20)
[2023-06-05] MEDS ORDERED: BUPIVACAINE /PF 0.25% 30 ML VIAL INJ ONE (17:20)
[2023-06-05] MEDS ORDERED: LIDOCAINE 1% 10 MG/ML, 20 ML MDV ONE (17:20)
[2023-06-05] MEDS ORDERED: NS IRRIG SOLN 1000 ML IR ONE (17:20)
[2023-06-05 19:00] VITALS: O2SAT 99
[2023-06-05] MEDS ORDERED: MORPHINE 2 MG/ML INJ. SYRINGE IVP PRN ×2 (21:00→21:45)
[2023-06-05] MEDS: INSULIN REGULAR, HUMAN 100 UNITS/ML, 3 ML VIAL (humuLIN R) SUBCUT PRN (21:22)
[2023-06-05] MEDS ORDERED: HYDROcodone/ACETAMIN 5-325 MG TAB (NORCO/ VICODIN) PO PRN (21:45)
[2023-06-05] MEDS ORDERED: NALOXONE HCL 0.4 MG/ML AMP (NARCAN) IVP PRN ×2 (21:45→22:15)
[2023-06-05] MEDS ORDERED: ONDANSETRON HCL 4 MG/2 ML VIAL IM PRN ×2 (21:45→22:15)
[2023-06-06 00:48] VITALS: BP_SYST 130; PULSE 86; RESP 18; TEMP 97.3; O2SAT 99
[2023-06-06] MEDS: HYDROcodone/ACETAMIN 5-325 MG TAB (NORCO/ VICODIN) PO PRN ×2 (06:11→14:42)
[2023-06-06 08:00] VITALS: BP_SYST 131; PULSE 95; RESP 17; TEMP 97.5; O2SAT 98
[2023-06-06] MEDS: lisinopriL 5 MG TABLET PO SCH (09:33)
[2023-06-06] MEDS: TAMSULOSIN HCL 0.4 MG CAP PO SCH (09:33)
[2023-06-06] MEDS: ATORVASTATIN 20 MG TABLET PO SCH (09:34)
[2023-06-06] MEDS: DORZOLAMIDE HCL/TIMOLOL MAL. 10 ML EYE DROPS (COSOPT) EACH EYE SCH ×2 (09:36→20:14)
[2023-06-06] MEDS: INSULIN GLARGINE 100 UNITS/ML, 10 ML VIAL SQ SCH (09:42)
[2023-06-06 12:00] VITALS: BP_SYST 118; PULSE 87; RESP 18; TEMP 97.5; O2SAT 99
[2023-06-06] MEDS: CEFEPIME 2 GM in D5W 100 ML IV SCH (12:19)
[2023-06-06] MEDS: VANCOMYCIN HCL 1,000 MG in NS 250 ML IV SCH (13:21)
[2023-06-06 16:00] VITALS: BP_SYST 122; PULSE 88; RESP 17; TEMP 97.7; O2SAT 99
[2023-06-06 20:00] VITALS: BP_SYST 96; PULSE 81; RESP 16; TEMP 97.6; O2SAT 99
[2023-06-06] MEDS ORDERED: MUPIROCIN 1 GM OIN.PF.APP NS SCH (21:00)
[2023-06-07 00:43] VITALS: BP_SYST 100; PULSE 79; RESP 16; TEMP 97.2; O2SAT 99
[2023-06-07 08:00] VITALS: BP_SYST 116; PULSE 83; RESP 18; TEMP 97.2; O2SAT 97; O2SAT 99
[2023-06-07] MEDS: TAMSULOSIN HCL 0.4 MG CAP PO SCH (09:24)
[2023-06-07] MEDS: ATORVASTATIN 20 MG TABLET PO SCH (09:25)
[2023-06-07] MEDS: lisinopriL 5 MG TABLET PO SCH (09:25)
[2023-06-07] MEDS: DORZOLAMIDE HCL/TIMOLOL MAL. 10 ML EYE DROPS (COSOPT) EACH EYE SCH ×2 (09:25→21:00)
[2023-06-07] MEDS: MUPIROCIN 2% TOPICAL OINTMENT 22 GM NS SCH ×2 (09:26→21:00)
[2023-06-07] MEDS: INSULIN GLARGINE 100 UNITS/ML, 10 ML VIAL SQ SCH (09:29)
[2023-06-07] MEDS: CEFEPIME 2 GM in D5W 100 ML IV SCH (12:21)
[2023-06-07 13:07] LABS: BASOPHILS % (AUTO) 0.6 % (0.0-2.0); EOSINOPHILS # (AUTO) 0.4 K/uL (0.0-0.4); EOSINOPHILS % (AUTO) 5.4 % (0.0-4.0); HEMATOCRIT 28.6 % (36-54); HEMOGLOBIN 9.6 g/dL (14.0-18.0); LYMPHOCYTES # (AUTO) 1.8 K/uL (1.0-5.5); LYMPHOCYTES % (AUTO) 22.8 % (20.5-51.5); MEAN CORPUSCULAR HEMOGLOBIN 28 pg (27-31); MEAN CORPUSCULAR HGB CONC 34 % (32-36); MEAN CORPUSCULAR VOLUME 85 fL (79.0-98.0); MONOCYTES # (AUTO) 0.5 K/uL (0.0-1.0); MONOCYTES % (AUTO) 6.9 % (1.7-9.3); NEUTROPHILS % (AUTO) 64.3 % (40.0-70.0); PLATELET COUNT (AUTO) 183 K/uL (130-430); RED BLOOD CELL COUNT(AUTO) 3.37 MIL/uL (4.2-6.2); RED CELL DISTRIBUTION WIDTH 15.6 % (9.0-15.0); WHITE BLOOD COUNT (AUTO) 7.8 K/uL (4.8-10.8)
[2023-06-07 13:20] LABS: CALCIUM 8.4 mg/dL (8.4-11.0); CREATININE 2.11 mg/dL (0.55-1.30); POTASSIUM 4.5 mmol/L (3.5-5.1); VANCOMYCIN,TROUGH 20.5 ug/mL (10.0-20.0)
[2023-06-07 15:14] VITALS: BP_SYST 121; PULSE 94; RESP 16; TEMP 98.2; O2SAT 99
[2023-06-07] MEDS: INSULIN REGULAR, HUMAN 100 UNITS/ML, 3 ML VIAL (humuLIN R) SUBCUT PRN ×2 (17:17→21:02)
[2023-06-07 20:00] VITALS: BP_SYST 113; PULSE 88; RESP 17; TEMP 98.7; O2SAT 98
[2023-06-08 00:28] VITALS: BP_SYST 119; PULSE 90; RESP 18; TEMP 98.6; O2SAT 100
[2023-06-08 07:44] LABS: CALCIUM 8.8 mg/dL (8.4-11.0); CREATININE 2.17 mg/dL (0.55-1.30); POTASSIUM 4.8 mmol/L (3.5-5.1)
[2023-06-08 07:53] LABS: BASOPHILS % (AUTO) 0.4 % (0.0-2.0); EOSINOPHILS # (AUTO) 0.6 K/uL (0.0-0.4); EOSINOPHILS % (AUTO) 5.6 % (0.0-4.0); LYMPHOCYTES % (AUTO) 26.3 % (20.5-51.5); MEAN CORPUSCULAR HEMOGLOBIN 27 pg (27-31); MEAN CORPUSCULAR HGB CONC 32 % (32-36); MEAN CORPUSCULAR VOLUME 85 fL (79.0-98.0); MONOCYTES # (AUTO) 0.8 K/uL (0.0-1.0); MONOCYTES % (AUTO) 7.2 % (1.7-9.3); NEUTROPHILS # (AUTO) 6.9 K/uL (1.8-7.7); NEUTROPHILS % (AUTO) 60.5 % (40.0-70.0); PLATELET COUNT (AUTO) 208 K/uL (130-430); RED BLOOD CELL COUNT(AUTO) 2.22 MIL/uL (4.2-6.2); RED CELL DISTRIBUTION WIDTH 15.4 % (9.0-15.0); WHITE BLOOD COUNT (AUTO) 11.4 K/uL (4.8-10.8)
[2023-06-08 08:00] VITALS: BP_SYST 109; PULSE 82; RESP 18; TEMP 98.3; O2SAT 100
[2023-06-08 08:38] LABS: ERYTHROCYTE SEDIMENTATION RATE 35 MM/HR (0-15)
[2023-06-08 08:46] LABS: HEMATOCRIT 18.8 % (36-54)
[2023-06-08] MEDS: TAMSULOSIN HCL 0.4 MG CAP PO SCH (09:00)
[2023-06-08] MEDS: lisinopriL 5 MG TABLET PO SCH (09:01)
[2023-06-08] MEDS: DORZOLAMIDE HCL/TIMOLOL MAL. 10 ML EYE DROPS (COSOPT) EACH EYE SCH ×2 (09:02→20:52)
[2023-06-08] MEDS: ATORVASTATIN 20 MG TABLET PO SCH (09:02)
[2023-06-08] MEDS: MUPIROCIN 2% TOPICAL OINTMENT 22 GM NS SCH ×2 (09:03→20:52)
[2023-06-08] MEDS: INSULIN GLARGINE 100 UNITS/ML, 10 ML VIAL SQ SCH (09:05)
[2023-06-08 09:30] VITALS: PULSE 80; O2SAT 100
[2023-06-08 09:49] LABS: HEMATOCRIT 26.7 % (36-54)
[2023-06-08 09:51] LABS: HEMOGLOBIN 8.6 g/dL (14.0-18.0)
[2023-06-08 15:08] VITALS: BP_SYST 120; PULSE 84; RESP 16; TEMP 98.3; O2SAT 98
[2023-06-08 20:00] VITALS: BP_SYST 148; PULSE 89; RESP 16; TEMP 98.1; O2SAT 99
[2023-06-08] MEDS: INSULIN REGULAR, HUMAN 100 UNITS/ML, 3 ML VIAL (humuLIN R) SUBCUT PRN (20:50)
[2023-06-08] MEDS ORDERED: CEFTAROLINE FOSAMIL ACETATE 600 MG in NS 250 ML IV SCH (21:00)
[2023-06-08] MEDS: CEFTAROLINE FOSAMIL ACETATE 400 MG in NS 250 ML IV SCH (21:50)
[2023-06-08] MEDS ORDERED: VANCOMYCIN HCL 750 MG in NS 250 ML IV SCH (22:00)
[2023-06-09 00:27] VITALS: BP_SYST 123; BP_SYST 126; PULSE 79; PULSE 87; RESP 18; TEMP 98.3; TEMP 99.1; O2SAT 92
[2023-06-09 08:00] VITALS: BP_SYST 128; PULSE 81; RESP 16; TEMP 98.2; O2SAT 99
[2023-06-09] MEDS: lisinopriL 5 MG TABLET PO SCH (10:15)
[2023-06-09] MEDS: TAMSULOSIN HCL 0.4 MG CAP PO SCH (10:15)
[2023-06-09] MEDS: DORZOLAMIDE HCL/TIMOLOL MAL. 10 ML EYE DROPS (COSOPT) EACH EYE SCH ×2 (10:15→21:03)
[2023-06-09] MEDS: ATORVASTATIN 20 MG TABLET PO SCH (10:16)
[2023-06-09] MEDS: MUPIROCIN 2% TOPICAL OINTMENT 22 GM NS SCH ×2 (10:16→21:02)
[2023-06-09] MEDS: INSULIN GLARGINE 100 UNITS/ML, 10 ML VIAL SQ SCH (10:30)
[2023-06-09] MEDS: CEFTAROLINE FOSAMIL ACETATE 400 MG in NS 250 ML IV SCH (10:36)
[2023-06-09 12:00] VITALS: BP_SYST 125; PULSE 85; RESP 16; TEMP 98.5; O2SAT 100
[2023-06-09 16:00] VITALS: BP_SYST 150; PULSE 86; RESP 19; TEMP 98.1; O2SAT 97
[2023-06-09] MEDS ORDERED: DOXYCYCLINE HYCLATE 100 MG CAPSULE PO SCH (21:00)
[2023-06-09] MEDS: INSULIN REGULAR, HUMAN 100 UNITS/ML, 3 ML VIAL (humuLIN R) SUBCUT PRN (21:01)
[2023-06-09 21:13] VITALS: BP_SYST 110; PULSE 90; RESP 17; TEMP 97.8; O2SAT 99
== END 2023-06-09 22:12 | disposition home health service (06) | DRG 623 ==
LOC: SED 10:30 → SMU 13:07
PROVIDERS: ADMIT Specialist; ATTEND Specialist
PROC: 0JBQ0ZZ Excision of Right Foot Subcutaneous Tissue and Fascia, Open Approach (ICD-10-PCS; principal; 2023-06-05 17:20)
DX: E11.621 Type 2 diabetes mellitus with foot ulcer (principal); E87.1 Hypo-osmolality and hyponatremia; L03.115 Cellulitis of right lower limb; E11.65 Type 2 diabetes mellitus with hyperglycemia; E11.51 Type 2 diabetes mellitus with diabetic peripheral angiopathy without gangrene; E83.39 Other disorders of phosphorus metabolism; E66.9 Obesity, unspecified; D64.9 Anemia, unspecified; B95.61 Methicillin susceptible Staphylococcus aureus infection as the cause of diseases classified elsewhere; L97.519 Non-pressure chronic ulcer of other part of right foot with unspecified severity; N18.30 Chronic kidney disease, stage 3 unspecified; E87.5 Hyperkalemia; I12.9 Hypertensive chronic kidney disease with stage 1 through stage 4 chronic kidney disease, or unspecified chronic kidney disease; E11.22 Type 2 diabetes mellitus with diabetic chronic kidney disease; Z79.4 Long term (current) use of insulin; Z79.899 Other long term (current) drug therapy; Z68.31 Body mass index [BMI] 31.0-31.9, adult; Z22.322 Carrier or suspected carrier of Methicillin resistant Staphylococcus aureus
CPT/HCPCS: 36415; 71045; 80048; 80053; 80202; 82962; 83037; 83605; 83735; 84100; 84484; 85018; 85025; 85610-TC; 85651-TC; 85730-TC; 86886; 86900; 86901; 87040; 87070-TC; 87075-TC; 87081; 87186-TC; 88304; 93005; 93923; 96361; 96365; 97116-GP; 97163-GP; 97530-GP; 99285; J0692; J0696; J0712; J1815; J2001; J2270; J2405; J2543; J3010; J3370; J3465; J3490; J7030; J7050; J7060

== ENCOUNTER 2023-06-12 13:02 | Inpatient (IN) | payer OTHER, MEDICAID ==
[~2023-06-12] VITALS: Ht 172.7 cm; Wt 86.9 kg
[~2023-06-12 13:02] MED LIST changes: -GLIP5TAB13 PO; +INSU100V9 SQ
[2023-06-12 13:15] VITALS: BP_SYST 126; PULSE 94; RESP 19; TEMP 96.6; O2SAT 100
[2023-06-12] MEDS ORDERED: DIPHENHYDRAMINE INJ 50 MG/ML VIAL IVP ONE (15:30)
[2023-06-12] MEDS ORDERED: EPINEPHRINE HCL/PF 1 MG/ML AMP IM ONE (15:30)
[2023-06-12] MEDS ORDERED: DEXTROSE 50% JECT 50 ML DISP.SYRIN IVP ONE (15:30)
[2023-06-12] MEDS ORDERED: FAMOTIDINE PF 20 MG/2 ML VIAL IVP ONE (15:30)
[2023-06-12] MEDS ORDERED: DEXAMETHASONE SOD PHOSPHATE 10 MG/ML VIAL IVP ONE (15:30)
[2023-06-12] MEDS ORDERED: TRANEXAMIC ACID 1,000 MG/10 ML VIAL IV ONE (15:30)
[2023-06-12 15:43] LABS: BASOPHILS % (AUTO) 0.1 % (0.0-2.0); EOSINOPHILS # (AUTO) 0.9 K/uL (0.0-0.4); EOSINOPHILS % (AUTO) 7.1 % (0.0-4.0); HEMATOCRIT 29.1 % (36-54); HEMOGLOBIN 9.1 g/dL (14.0-18.0); LYMPHOCYTES # (AUTO) 2.3 K/uL (1.0-5.5); LYMPHOCYTES % (AUTO) 18.7 % (20.5-51.5); MEAN CORPUSCULAR HEMOGLOBIN 27 pg (27-31); MEAN CORPUSCULAR HGB CONC 31 % (32-36); MEAN CORPUSCULAR VOLUME 86 fL (79.0-98.0); MONOCYTES % (AUTO) 8.3 % (1.7-9.3); NEUTROPHILS # (AUTO) 8.1 K/uL (1.8-7.7); NEUTROPHILS % (AUTO) 65.8 % (40.0-70.0); PLATELET COUNT (AUTO) 195 K/uL (130-430); WHITE BLOOD COUNT (AUTO) 12.3 K/uL (4.8-10.8)
[2023-06-12 16:14] LABS: CREATININE 2.94 mg/dL (0.55-1.30); POTASSIUM 4.6 mmol/L (3.5-5.1)
[2023-06-12 16:18] LABS: ALBUMIN 3.4 g/dL (3.4-4.8); TOTAL BILIRUBIN 0.3 mg/dL (0.0-1.0); TOTAL PROTEIN, SERUM 8.1 g/dL (6.4-8.3)
[2023-06-12 16:53] LABS: PROTHROMBIN TIME 10.4 SECS (9.5-12.5)
[2023-06-12] MEDS ORDERED: KETOROLAC TROMETHAMINE 30 MG VIAL IVP ONE (19:30)
[2023-06-12] MEDS ORDERED: DOCU-144 PO (19:49)
[2023-06-12 21:02] VITALS: BP_SYST 150; PULSE 107; RESP 20; TEMP 98.8; O2SAT 100
[2023-06-12] MEDS: METHYLPREDNISOLONE SOD SUCC 40 MG/ML VIAL IVP SCH (23:02)
[2023-06-12] MEDS: INSULIN REGULAR, HUMAN 100 UNITS/ML, 3 ML VIAL (humuLIN R) SUBCUT PRN (23:09)
[2023-06-13 00:20] VITALS: BP_SYST 159; PULSE 97; RESP 20; TEMP 97.7
[2023-06-13] MEDS: INSULIN REGULAR, HUMAN 100 UNITS/ML, 3 ML VIAL (humuLIN R) SUBCUT PRN ×3 (03:39→11:45)
[2023-06-13] MEDS: METHYLPREDNISOLONE SOD SUCC 40 MG/ML VIAL IVP SCH (06:36)
[2023-06-13] MEDS ORDERED: DIPHENHYDRAMINE HCL 12.5 MG/5 ML UDC PO PRN (10:30)
[2023-06-13] MEDS ORDERED: ATORVASTATIN 20 MG TABLET PO ONE ×2 (11:00)
[2023-06-13 11:05] LABS: BASOPHILS % (AUTO) 0.2 % (0.0-2.0); EOSINOPHILS % (AUTO) 0.1 % (0.0-4.0); HEMATOCRIT 27.7 % (36-54); LYMPHOCYTES # (AUTO) 0.8 K/uL (1.0-5.5); LYMPHOCYTES % (AUTO) 7.9 % (20.5-51.5); MEAN CORPUSCULAR HEMOGLOBIN 27 pg (27-31); MEAN CORPUSCULAR HGB CONC 32 % (32-36); MEAN CORPUSCULAR VOLUME 84 fL (79.0-98.0); MONOCYTES # (AUTO) 0.3 K/uL (0.0-1.0); MONOCYTES % (AUTO) 2.6 % (1.7-9.3); NEUTROPHILS # (AUTO) 8.9 K/uL (1.8-7.7); NEUTROPHILS % (AUTO) 89.2 % (40.0-70.0); PLATELET COUNT (AUTO) 199 K/uL (130-430); RED BLOOD CELL COUNT(AUTO) 3.31 MIL/uL (4.2-6.2); RED CELL DISTRIBUTION WIDTH 15.6 % (9.0-15.0)
[2023-06-13 11:20] LABS: ALBUMIN 3.2 g/dL (3.4-4.8); CALCIUM 9.1 mg/dL (8.4-11.0); CREATININE 2.48 mg/dL (0.55-1.30); POTASSIUM 4.8 mmol/L (3.5-5.1); TOTAL BILIRUBIN 0.3 mg/dL (0.0-1.0); TOTAL PROTEIN, SERUM 7.9 g/dL (6.4-8.3)
[2023-06-13 11:47] LABS: HEMOGLOBIN A1C 7.36 % (<5.7)
[2023-06-13] MEDS ORDERED: FERR324T22 PO (12:12)
[2023-06-13] MEDS ORDERED: KETOROLAC TROMETHAMINE 30 MG VIAL IVP ONE (13:00)
[2023-06-13] MEDS ORDERED: DOXY100C5 PO (14:05)
[2023-06-13] MEDS ORDERED: CEPH-548 PO (14:05)
[2023-06-13] MEDS ORDERED: PRED-428 PO (14:08)
[2023-06-13] MEDS ORDERED: LOSA-412 PO (14:11)
[2023-06-13 14:32] VITALS: BP_SYST 146; PULSE 98; RESP 20; TEMP 98.2; O2SAT 100
[2023-06-13 15:58] VITALS: BP_SYST 146; PULSE 98; RESP 19; TEMP 98.2; O2SAT 100
[2023-06-13] MEDS ORDERED: cephALEXin 500 MG CAPSULE PO SCH (21:00)
[2023-06-13] MEDS ORDERED: DOXYCYCLINE HYCLATE 100 MG CAPSULE PO SCH (21:00)
[2023-06-14] MEDS ORDERED: ATORVASTATIN 20 MG TABLET PO SCH (09:00)
[2023-06-14] MEDS ORDERED: TAMSULOSIN HCL 0.4 MG CAP PO SCH (09:00)
== END 2023-06-13 17:00 | disposition home health service (06) | DRG 916 ==
LOC: SED 13:02 → STU 19:35
PROVIDERS: ADMIT Specialist; ATTEND Specialist
DX: T78.3XXA Angioneurotic edema, initial encounter (principal); L03.115 Cellulitis of right lower limb; R65.10 Systemic inflammatory response syndrome (SIRS) of non-infectious origin without acute organ dysfunction; A49.01 Methicillin susceptible Staphylococcus aureus infection, unspecified site; E11.621 Type 2 diabetes mellitus with foot ulcer; I12.9 Hypertensive chronic kidney disease with stage 1 through stage 4 chronic kidney disease, or unspecified chronic kidney disease; E11.22 Type 2 diabetes mellitus with diabetic chronic kidney disease; N18.9 Chronic kidney disease, unspecified
CPT/HCPCS: 36415; 80053; 82962; 83037; 85025; 85610-TC; 85730-TC; 87070-TC; 87081; 96374; 96375; 99291; G0378; J0171; J1030; J1100; J1200; J1815; J1885; J3490

== ENCOUNTER 2024-04-15 09:06 | Emergency (ER) | payer OTHER, MEDICAID ==
[~2024-04-15] VITALS: Ht 167.6 cm; Wt 81.6 kg
[~2024-04-15 09:06] MED LIST changes: +CEPH-548 PO; +DOCU-144 PO; +DOXY100C5 PO; -FERR324T11; +FERR324T22 PO; -LISI-209 PO; +LOSA-412 PO; +PRED-428 PO
[2024-04-15 09:19] VITALS: BP_SYST 138; PULSE 100; RESP 16; TEMP 97.9; O2SAT 100
[2024-04-15] MEDS: PENICILLIN G BENZATHINE 1.2 MMU/2 ML SYR IM ONE (09:36)
[2024-04-15 09:39] VITALS: BP_SYST 138; PULSE 100; RESP 16; TEMP 97.9; O2SAT 100
== END 2024-04-15 09:40 | disposition home or self-care (01) ==
LOC: SED 09:06
DX: A53.9 Syphilis, unspecified (principal); E11.9 Type 2 diabetes mellitus without complications; I10 Essential (primary) hypertension; Z79.899 Other long term (current) drug therapy; Z79.2 Long term (current) use of antibiotics
CPT/HCPCS: 99283; 96372; J0561